=== PATIENT | female | born 1990 | race Caucasian/White ===

== ENCOUNTER 2024-04-07 00:36 | Emergency (ER) | payer OTHER ==
[~2024-04-07] VITALS: Ht 152.4 cm; Wt 95.3 kg
[2024-04-07 00:46] VITALS: O2SAT 95
[2024-04-07 02:28] LABS: BASOPHILS # (AUTO) 0.2 K/UL (0.0-0.2); BASOPHILS % (AUTO) 1.4 % (0.0-2.0); EOSINOPHILS # (AUTO) 0.5 K/uL (0.0-0.7); EOSINOPHILS % (AUTO) 3.6 % (0.0-7.0); HEMATOCRIT 37.6 % (31.2-41.9); HEMOGLOBIN 12.5 g/dL (10.9-14.3); LYMPHOCYTES # (AUTO) 3.6 K/uL (0.8-4.8); LYMPHOCYTES % (AUTO) 24.7 % (20.5-51.5); MEAN CORPUSCULAR HEMOGLOBIN 27.3 uug (24.7-32.8); MEAN CORPUSCULAR HGB CONC 33 g/dL (32.3-35.6); MEAN CORPUSCULAR VOLUME 81.7 fL (75.5-95.3); MONOCYTES # (AUTO) 0.9 K/uL (0.1-1.30); MONOCYTES % (AUTO) 6.2 % (0.0-11.0); NEUTROPHILS # (AUTO) 9.4 K/uL (1.8-8.9); NEUTROPHILS % (AUTO) 64.1 % (38.5-71.5); PLATELET COUNT (AUTO) 397 K/uL (179-408); RED CELL DISTRIBUTION WIDTH 13.3 % (12.3-17.7); WHITE BLOOD COUNT (AUTO) 14.6 K/uL (3.8-11.8)
[2024-04-07] MEDS ORDERED: METOCLOPRAMIDE HCL 10 MG/2 ML VIAL ONE (02:41)
[2024-04-07] MEDS: IV NS 1000 ML 1,000 ML IV ONE (02:42)
[2024-04-07] MEDS: METOCLOPRAMIDE HCL 10 MG/2 ML VIAL IV ONE (02:42)
[2024-04-07] MEDS: MORPHINE SULFATE 4 MG/1 ML DISP.SYRIN IV ONE ×2 (02:42→05:13)
[2024-04-07] MEDS ORDERED: MORPHINE SULFATE 4 MG/1 ML DISP.SYRIN ONE ×2 (02:42→05:02)
[2024-04-07 02:56] LABS: CALCIUM 9.6 mg/dL (8.5-10.1); CREATININE 0.7 mg/dL (0.6-1.3); POTASSIUM 4.2 mmol/L (3.5-5.1)
[2024-04-07] MEDS ORDERED: SWABABLE VALVE TRANSFER SET EA MC ONE (03:18)
[2024-04-07] MEDS ORDERED: IOHEXOL 350 100 ML INFUS..BTL ONE (03:18)
[2024-04-07] MEDS ORDERED: IV NORMAL SALINE 250 ML IV ONE (03:18)
[2024-04-07] MEDS ORDERED: KETOROLAC TROMETHAMINE 30 MG INJ ONE (04:29)
[2024-04-07] MEDS: KETOROLAC TROMETHAMINE 30 MG INJ IVP ONE (04:32)
[2024-04-07] MEDS ORDERED: HYDR-3980 PO (04:54)
[2024-04-09] MEDS ORDERED: HYDR-3980 PO (09:19)
== END 2024-04-07 04:57 | disposition home or self-care (01) ==
LOC: ER 00:49
DX: G44.82 Headache associated with sexual activity (principal); F17.290 Nicotine dependence, other tobacco product, uncomplicated; Z86.73 Personal history of transient ischemic attack (TIA), and cerebral infarction without residual deficits; Z79.899 Other long term (current) drug therapy; Z88.2 Allergy status to sulfonamides
CPT/HCPCS: 99285; 70450; 96361; 96374; 96375; 80048; 85025; 36415; 70498; 96376; J1885; J2765; Q9967; J2270 ×2; J7040; A4606; A4663

== ENCOUNTER 2024-04-07 19:34 | Emergency (ER) | payer OTHER ==
[~2024-04-07 19:34] MED LIST: HYDR-3980 PO
[2024-04-09] MEDS ORDERED: HYDR-3980 PO (09:19)
== END 2024-04-07 19:55 | disposition left against medical advice (07) ==
LOC: ER 19:35
DX: R52 Pain, unspecified (principal); Z76.0 Encounter for issue of repeat prescription; Z53.21 Procedure and treatment not carried out due to patient leaving prior to being seen by health care provider